=== PATIENT | female | born 1990 | race Caucasian/White ===

== ENCOUNTER → 2023-03-29 08:05 | Outpatient (CLI) | payer OTHER, SELFPAY ==
--- NOTE | ~2023-03-29 | US_ITS ---
Limited Abdominal Sonogram: Real-time sonographic imaging of the right upper quadrant was performed. Clinical History: Right upper quadrant pain Findings: The liver appears heterogeneous, with no evidence of mass lesion or bile duct dilatation. Main portal vein demonstrates normal direction of flow. The gallbladder is well distended, and appear s normal with no evidence of gallstone or wall thickening. The common bile duct measures 3 mm. The v isualized pancreas, aorta, and IVC are unremarkable. Impression: Probable diffuse fatty infiltration of the liver versus other chronic liver disease. Reviewed, dictated and finalized at location [facility] Impression: Probable diffuse fatty infiltration of the liver versus other chronic liver dis ease.
== END ==
PROVIDERS: PCP Physician Assistant; Visit Provider Physician Assistant
DX: R10.11 Right upper quadrant pain (principal)
CPT/HCPCS: 76705

== ENCOUNTER 2023-05-07 17:09 | Emergency (ER) | payer OTHER, SELFPAY ==
[2023-05-07 17:32] VITALS: BP 126/84; PULSE 75; RESP 18; TEMP 36.8; O2SAT 100
--- NOTE | 2023-05-07 17:56 | ED.FEMALEGU ---
HPI - Female Genitourinary General Chief complaint: Urogenital-Female Stated complaint: blood in urine Time Seen by Provider: 05/07/23 17:25 Source: patient Mode of arrival: ambulatory Limitations: no limitations History of Present Illness HPI Narrative: This is a 32-year-old female who presents to the ED with chief complaint of hematuria onset today. Patient reports that she is on day 5 of her normal menstrual cycle but noticed some increased bleeding today. She states that when she went to the bathroom she noticed there was blood on the toilet paper when she wiped. reports that she did have a tampon in place which caused concern for the bleeding notice when wiping. She states that she then had 2 episodes hematuria that she noticed during the stream of urine. She states most recent episode of urination did not contain any blood. Denies any dysuria, frequency, urgency, flank pain, abdominal pain, nausea, vomiting, fevers, chills. denies vaginal pain, vaginal discharge or any concern for STDs. Related Data Allergies Allergy/AdvReac Type Severity Reaction Status Date / Time latex Allergy Unknown Rash Verified 05/07/23 17:37 Review of Systems Review of Systems: All systems as dictated in HPI Exam Narrative: GENERAL: Well-appearing, well-nourished, and in no acute distress. HEAD: Normocephalic, atraumatic. EYES: PERRLA and EOMI. ENT: Nares clear, no rhinorrhea or epistaxis. Mucous membranes moist. Oropharynx without tonsillar hypertrophy exudate or other lesions. NECK: Supple. No adenopathy or masses. CHEST: No respiratory distress. Clear to auscultation. No wheezes rales or rhonchi HEART: Regular rate and rhythm. No murmur heard. Normal peripheral pulses. ABDOMEN: Soft, nontender, nondistended, normal active bowel sounds. Negative flank tenderness bilaterally MSK: Normal range of motion. No edema. SKIN: Warm, dry, no rash. NEURO: Alert and oriented x3. No focal deficits. PSYCH: Normal mood and affect. Course Vital Signs Vital signs: Vital Signs Temperature 98.3 F 05/07/23 17:32 Pulse Rate 75 05/07/23 17:32 Respiratory Rate 18 05/07/23 17:32 Blood Pressure 126/84 05/07/23 17:32 Pulse Oximetry 100 05/07/23 17:32 Temperature 98.3 F 05/07/23 17:32 Pulse Rate 75 05/07/23 17:32 Respiratory Rate 18 05/07/23 17:32 Blood Pressure 126/84 05/07/23 17:32 Pulse Oximetry 100 05/07/23 17:32 MDM - Female Genitourinary MDM Narrative Medical decision making narrative: This is a 32-year-old female who presents to the ED for chief complaint of isolated hematuria. Vitals are normal. Exam is benign. No flank pain or tenderness. Currently asymptomatic. She states that hematuria resolved while giving a urine sample here. UA remarkable only for trace blood. She is on the tail end of her menstrual cycle. We discussed that this is probably an isolated event and the blood in the urine is most likely related to menstrual cycle. due to lack of infection or any more concerning findings on the UA, shared decision making to avoid any further workup at this point. she feels comfortable with following up with PCP on this. Pt will be discharged in stable condition. Return precautions given and supportive measures discussed. Pt is understanding and agreeable with plan for discharge and follow-up with PCP. Lab Data Labs: Lab Results 05/07/23 Range/Units 17:43 Urine Color Yellow (Yellow) Urine Appearance Clear (Clear) Urine pH 6.0 (5.0-9.0) Ur Specific Superior <= 1.005 (1.001-1.035) Urine Protein Negative (Negative) mg/dL Urine Glucose (UA) Negative (Negative) mg/dL Urine Ketones Trace H (Negative) mg/dL Ur Blood (Man) Trace-intact H (Negative) Urine Nitrate Negative (Negative) Urine Bilirubin Negative (Negative) Urine Urobilinogen 0.2 (<2.0) mg/dL Leukocyte Esterase Rfl Negative (Negative) MALISSA/UL Urine RBC 0-2 (0-2
[2023-05-07 18:06] LABS: Bacteria Urine None Seen /hpf; Non Pathogenic Casts 0-2; RBC Urine 0-2 /hpf (0-2); Squamous Epithelial Cell Urine None Seen /hpf (Few); WBC Urine 0-5 /hpf (0-3)
[2023-05-07 18:21] LABS: Appearance Urine Clear (Clear); Color Urine Yellow (Yellow); Specific Grav Ur <= 1.005 (1.001-1.035)
[2023-05-07 18:22] LABS: Bilirubin Urine Negative (Negative); Blood Urine Trace-intact (Negative); Glucose Urine UA Negative (Negative); Ketones Urine Trace mg/dL (Negative); Nitrate Urine Negative (Negative); Protein Urine Negative (Negative)
[2023-05-07 18:23] LABS: Leukocyte Esterase Ur Negative LEU/UL (Negative); Urobilinogen Urine 0.2 mg/dL (<2.0)
[2023-05-07 18:24] LABS: Add Urine Microscopic? YES
== END 2023-05-07 18:43 | disposition home or self-care (01) ==
PROVIDERS: Emergency Provider Physician Assistant; PCP Physician Assistant
DX: R31.9 Hematuria, unspecified (principal)
CPT/HCPCS: 81001; 81025; 99283

== ENCOUNTER 2023-08-22 09:38 | Outpatient (CLI) | payer OTHER, SELFPAY ==
--- NOTE | ~2023-08-22 | US_ITS ---
EXAMINATION: US transvaginal DATE: 08/22/2023 10:06 INDICATION: Pelvic pain. TECHNIQUE: Multiple transvaginal sonographic images of the pelvis were obtained. COMPARISON: None. FINDINGS: The uterus measures 9.5 x 4.4 x 5.3 cm. There is no free fluid in the pelvis. The endometrial complex measures 15 mm in thickness. The right ovary measures 3.8 x 2.1 x 2.8 cm. The left ovary measures 4. 1 x 2.4 x 3.4 cm. There is normal vascular flow in the ovaries. IMPRESSION: 1. Normal pelvis. Reviewed, dictated and finalized at location E. IMPRESSION: 1. Normal pelvis.
== END 2023-08-22 09:39 ==
PROVIDERS: PCP Physician Assistant; Visit Provider Physician Assistant
DX: R10.2 Pelvic and perineal pain (principal)
CPT/HCPCS: 76830

== ENCOUNTER 2023-10-03 00:49 | Day surgery (SDC) | payer OTHER, SELFPAY ==
[2023-09-16 10:42] VITALS: BMI 27.1
[2023-10-03 11:38] VITALS: BP 117/74; PULSE 90; RESP 16; TEMP 36.5; O2SAT 100; BMI 27.1
[2023-10-03 11:55] LABS: BEDSIDEPREGUCG Negative
[2023-10-03] MEDS: LACTATED RINGERS 1,000 ML 150 ML IV CONT (12:00)
--- NOTE | 2023-10-03 12:08 | P.PNAN_ITS ---
Anes - Initial Pre Proc Eval Procedure: Operation Date: 10/03/23 15:00 Proposed Procedures p Esophagogastroduodenoscopy - Lane Wells MD Date/Time: 10/03/23 12:08 Surgeon: Lane Wells MD Pre Op Diagnosis: epigastric pain Patient Data Age: 33 Gender: F Height: 1.5 m Weight: 60.9 kg Last Vital Signs Temp 97.7 F 10/03/23 11:38 Pulse 90 10/03/23 11:38 Resp 16 10/03/23 11:38 BP 117/74 10/03/23 11:38 Pulse Ox 100 10/03/23 11:38 O2 Del Method Room Air 10/03/23 11:38 Allergies Allergy/AdvReac Type Severity Reaction Status Date / Time latex Allergy Unknown Rash Verified 10/03/23 11:46 Home Medications Medication Instructions Recorded Confirmed Type albuterol sulfate 90 mcg/actuation 1 inh inhalation Q4-6H PRN SOB 08/26/23 10/03/23 History breath activated powder inhaler famotidine 20 mg tablet (Pepcid) 20 mg PO BID 1 month #60 tabs 08/26/23 10/03/23 Rx Laboratory Tests 10/03/23 11:53 POC Urine HCG, Qual Negative POC Ur Preg QC Yes Patient hx anesthesia problems: none Family hx anesthesia problems: none Results Review: All pre-operative results and documents have been reviewed as part of the pre- operative evaluation. [facility] Past Medical History Medical History Epigastric pain Fatty liver Family History Family History Mother Depression Hypertension Father Cancer Hypertension Social History Social History Years smoked: 15 Smoking status: Former smoker Tobacco type: cigarettes and e-cigarettes/vaping Additional smoking assessment comments: Currently e-cig Alcohol intake: current Substance use: never Living arrangements: with family Spiritual care concerns: No Anes - Eval Final PreProcedure Day of Procedure 10/03/23 12:08 Patient weight: overweight Heart: regular rate and rhythm Lungs: clear to auscultation Airway: Mallampati scale class II Neurological: alert and oriented Last oral intake: >/= 8 hours ASA classification: II Emergent: no Anesthetic plan: proceed Anesthesia type and monitoring: general GIVS and standard monitoring Results Review: All pre-operative results and documents have been reviewed as part of the pre- operative evaluation. Pt currently vapes, ex smoker, quit 2018, 15 pack years. Anxiety. Informed Consent: The patient's anesthetic plan and its attendant risks and benefits were discussed with the patient/family/POA. Questions were solicited and answers provided to the satisfaction of the patient/family/POA.
--- NOTE | 2023-10-03 12:26 | PM.HPGS ---
History of Present Illness History of Present Illness Consent: Risks, benefits, and alternatives have been discussed and questions answered. Patient agrees to proceed with procedure. Chief complaint: epigastric pain Narrative: Mckenzie Aleman is a 33 year old female with intermittent abdominal pain mostly if she has empty stomach and sometimes after eating- this has been going on since March, ultrasound only fatty liver, never had egd Review of Systems Review of Systems: All systems reviewed & are unremarkable except as noted in HPI and below PMFSH Past Medical History Medical History Epigastric pain Fatty liver Family History Family History Mother Depression Hypertension Father Cancer Hypertension Social History Social History Years smoked: 15 Smoking status: Former smoker Tobacco type: cigarettes and e-cigarettes/vaping Additional smoking assessment comments: Currently e-cig Alcohol intake: current Substance use: never Living arrangements: with family Spiritual care concerns: No Meds Home Medications and Allergies Home Medications Medication Instructions Recorded Confirmed Type albuterol sulfate 90 mcg/actuation 1 inh inhalation Q4-6H PRN SOB 08/26/23 10/03/23 History breath activated powder inhaler famotidine 20 mg tablet (Pepcid) 20 mg PO BID 1 month #60 tabs 08/26/23 10/03/23 Rx Allergies Allergy/AdvReac Type Severity Reaction Status Date / Time latex Allergy Unknown Rash Verified 10/03/23 11:46 Vital Signs Vital Signs - 24 hr 10/03/23 11:38 Temperature 97.7 F Pulse Rate 90 Respiratory Rate 16 Blood Pressure 117/74 Pulse Oximetry 100 Oxygen Delivery Room Air Exam Const: General: comfortable and no acute distress HENMT: Face/Nose/Sinus: Normal nares present Eyes: General: appearance normal, both eyes and all related structures Neck: Neck: no JVD Resp: Auscultation: clear to auscultation bilaterally Cardio: Rate: regular rate Rhythm: regular rhythm GI: Inspection: non-distended GI Palp: Yes Soft to palpation Skin: General skin exam: normal color Neuro: General: gait normal Speech: normal speech Extrem: General: normal to inspection Psych: Mental Status: mental status grossly normal Assessment and Plan Assessment and plan (1) Epigastric pain: Code(s): R10.13 - Epigastric pain Status: Acute Assessment and Plan: egd with bx
[2023-10-03 12:36] VITALS: BP 129/84; PULSE 90; RESP 20; O2SAT 100
[2023-10-03 12:46] VITALS: BP 99/66; PULSE 60; RESP 18; O2SAT 100
== END 2023-10-03 13:04 | disposition home or self-care (01) ==
PROVIDERS: Anesthesiology; PCP Physician Assistant; Referring Provider Nurse Practitioner Family; Visit Provider Internal Medicine Gastroenterology
PROC: 0DJ08ZZ Inspection of Upper Intestinal Tract, Via Natural or Artificial Opening Endoscopic (ICD-10-PCS; CPT 43235; principal; 2023-10-03 15:00)
DX: R10.13 Epigastric pain (principal); Z79.51 Long term (current) use of inhaled steroids; Z87.891 Personal history of nicotine dependence; Z80.9 Family history of malignant neoplasm, unspecified
CPT/HCPCS: 43239; 88305; J2704; J7120

== ENCOUNTER 2023-12-06 10:03 | Outpatient (CLI) | payer OTHER, SELFPAY ==
[2023-12-06 10:21] LABS: Hematocrit 37.6 % (37.0-47.0); Hemoglobin 12.3 g/dL (12.0-15.0); Mean Corpuscular HGB Conc 32.7 g/dl (32-36); Mean Corpuscular Hemoglobin 27.8 pg (26-34); Mean Corpuscular Volume 85.1 fl (80-100); Mean Platelet Volume 9.5 fl (7.4-10.4); Platelet Count Result 287 k/mm3 (150-375); Red Blood Count 4.42 M/mm3 (4.2-5.4); Red Cell Distribution Width 12.2 % (11.5-14.5); White Blood Count 7.4 K/mm3 (4.5-10.0)
[2023-12-06 10:33] LABS: Alanine Aminotransferase 14 U/L (6-35); Albumin Level 4.2 g/dL (3.5-5.1); Alkaline Phosphatase 46 U/L (38-126); Anion Gap 8 mmol/L (4-12); Aspartate Amino Transferase 23 U/L (14-36); Bilirubin,Total 0.6 mg/dL (0.2-1.3); Blood Urea Nitrogen 10 mg/dL (7-17); Calcium 8.8 mg/dL (8.4-10.2); Carbon Dioxide 26 mmol/L (22-30); Chloride 101 mmol/L (98-107); Estimated Glomerular Filt Rate > 60; Glucose 78 mg/dL (65-110); Potassium 4.2 mmol/L (3.4-5.0); Sodium 135 mmol/L (137-145)
== END 2023-12-06 10:04 | disposition home or self-care (01) ==
LOC: ANHLAB 10:05
PROVIDERS: PCP Physician Assistant; Visit Provider Nurse Practitioner Family
DX: R10.13 Epigastric pain (principal); K76.0 Fatty (change of) liver, not elsewhere classified
CPT/HCPCS: 36415; 80053; 81596; 85027

== ENCOUNTER 2024-12-08 17:03 | Outpatient (CLI) | payer OTHER, SELFPAY ==
--- OUTSIDE RECORDS SUMMARY | 2011-07-02 10:00 | XMS_ITS | Continuity of Care Document ---
Author Organization [facility] Plot Projects [facility] Address [address] [place] [address] Phone Care Team Providers Care Loans Officer Name Role Phone Viki Garza DO Unavailable Unavailable Procedures Procedure Date OFFICE/OUTPATIENT VISIT, [facility] Advance Directives Directive Yes / No Effective Date File Name No Information Encounters Encounter Description Practice Location Reason(s) For Visit Diagnoses Date Provider Providers Copied on Encounter OFFICE/OUTPAT IENT VISIT, [facility], [address], [place], [id number], tel:[phone] [facility] No Information Greg Drew. [address], [place], [id number] , . tel:[phone] Referring Provider: Viki Garza [address] [address], [place], [address] . tel:[phone] Family History Family Member Type Diagnosis Age At Onset No Information Payers Payer name Insurance type Covered constitution party ID Authoriza tion(s) No Information Social History Type Description Quantity Date Captured Comments Sex Female Smoking Status No Information Chief Complaint And Reason For Visit No Information Reason For Referral Reason For Referral No Information History Of Present Illness Encounter Date Complaint History Of Prese nt Illness No Information Functional Status Date Functional Assessmen t No Information Instructions Date Instruction Additional Infor mation No Information Assessments Type Assessment Date No Information Patient Care Teams Name Effective Dates (start - stop) Status Members No Information
[2024-12-08 17:33] LABS: Alanine Aminotransferase 14 U/L (6-35); Albumin Level 4.2 g/dL (3.5-5.1); Alkaline Phosphatase 48 U/L (38-126); Anion Gap 8 mmol/L (4-12); Aspartate Amino Transferase 23 U/L (14-36); Bilirubin,Total 0.2 mg/dL (0.2-1.3); Blood Urea Nitrogen 17 mg/dL (7-17); Calcium 8.9 mg/dL (8.4-10.2); Carbon Dioxide 26 mmol/L (22-30); Chloride 102 mmol/L (98-107); Estimated Glomerular Filt Rate > 60; Glucose 89 mg/dL (65-110); Hematocrit 36.3 % (37.0-47.0); Hemoglobin 12.1 g/dL (12.0-15.0); Mean Corpuscular HGB Conc 33.3 g/dl (32-36); Mean Corpuscular Hemoglobin 27.4 pg (26-34); Mean Corpuscular Volume 82.3 fl (80-100); Platelet Count Result 304 k/mm3 (150-375); Potassium 4.3 mmol/L (3.4-5.0); Red Blood Count 4.41 M/mm3 (4.2-5.4); Sodium 136 mmol/L (137-145); Total Protein 7.0 g/dL (6.3-8.2); White Blood Count 8.3 K/mm3 (4.5-10.0)
--- OUTSIDE RECORDS SUMMARY | 2024-12-08 18:03 | XMS_ITS | Data Portability ---
Author Organization [facility] [place] Address [address] [place] [address] Care Team Providers Care Client Care Manager Name Role Phone MAGNOLIA ALVARADO Primary Care Provider [phone] Assessment Encounter Date Assessment Date Assessment LastModified by Organization Details LastModified Time 09/27/2020 09/27/2020 Annual gynecological exam performed. Patient will come back in a year unless there are new symptoms. Not available 09/27/2020 10:19:23 09/12/2023 09/12/2023 Annual gynecological exam performed. Patient will come back in a year unless there are new symptoms. [email or web address] Not available 09/11/2023 12:25:17 Plan of Treatment Reminders Order Date Submit Date Provider Last Modified By Organization Details Last Modified Time Details Appointments None recorded. Lab None recorded. Referral urogynecolo gist referral [phone] YURI Segal MD, [address] [facility] [address], [place], [address], 5 05:01:13 Procedures None recorded. Surgeries None recorded. Imaging None recorded. Medication Orders None recorded. Patient TargetsNo targets recorded. Patient InstructionsNo instructions recorded. Reason for Referral Urogynecologist Referral for Urinary bladder pain Referring Physician: Katlyn Rodriguez, [employer], Encounter Date: 09/12/2023 Results Created Date Observation Date Name Description Value Unit Range Abnormal Flag Note LastModifiedBy Organization Detail LastModifiedTime 09/28/19 21 09/27/2020 IMAGE GUIDE D PAP AND HPV REGAR DLESS image guided Pap, HPV regardless of Pap result SEE RESULT S BELOW CASE REPOR T: Cytol ogy Gynec ologi luly Repor t Case: [id number] Autho elzbieta pardo Provi nikki: Black muro , Cindi Hughes cted: 09/27 1207 TERADATA ARCHITECT Order ing Locat ion: [place] Patho log[facility] Recei gina: 09/28 0658 First Scree n: Laya Espinoza ret, CT Speci men: Jacob luzg Pap - Image d, Cervi x STATE MENT OF ADEQU ACY: Satis facto ry for evalu ation Trans forma tion zone compo nent prese nt FINAL DIAGN OSIS: Negat saurabh for Intra epith elial Lesio n or Rufino smith (NIL) Elect alonso danetteluis woody d by Laya Espinoza ret, CT on 2020 at 1:29 PM ----- ----- ----- ----- ----- ----- ----- ----- ----- ----- ----- ----- ----- ----- ----- ----- ----- ---- HPV RESUL TS: HPV mRNA E6/E7 : No HPV mRNA Detec binta NOTE: This high risk HPV mRNA assay detec ts fourt een high- risk HPV types (16, 18, 31, 33, 35, 39, 45, 51, 52, 56, 58, 59, 66, 68) witho ut diffe renti ation . COMME NT: Note: This speci men was revie wed by a Cytot echno logis t and/o r Patho logis t (as indic ated in this repor t) after evalu ation using the Thinp rep Imagi ng Syste m. CLINI LULY INFOR MATIO N: Menst rual Statu s: LMP (if appli cable ): 021 Clini luly Histo ry/Pr eviou s Pap: Type of Neopl torie (if appli cable ): Signi fican t Clini luly Findi ngs: Other Histo ry: Hormo melinda (if appli cable ): PAP EDUCA ANI L NOTE: The Pap Test is a scree zaria test with an inher ent false negat saurabh rate. Liqui d-bas e sampl ing may decre ase, but will not elimi srinivasan, false negat saurabh resul ts. A negat saurabh resul t does not precl ude the prese nce and/o r devel opmen t of disea se, since the prese nce of abnor mal cells in the sampl e depen ds on the locat ion of the lesio n and sampl ing techn ique. Jose Angel nued regul ar scree zaria is the best metho d of cance r preve ntion . If repor binta cytol ogic findi ng do not corre late with physi luly and/o r histo rical findi ngs, furth er inves tigat ion is recom garry d, as clini stephan warranu nted. Not Available [facility] (Lab) [address], [place], [address], 09/29/2020 14:32:32 09/28/19 21 09/27/2020 TRICH OMONA S VAGIN CHRISTOPHER (RRNA ) trichomonas vaginalis ribosomal RNA (rrna) Negati ve negati ve Not Available [facility] (Lab) [address], [place], [address], 09/29/2020 14:32:33 09/28/19 21 09/27/2020 CT/GC (ARELY) , THINP REP VIAL chlamydia trachomatis, PCR Negati ve negati ve Not Available [facility] (Lab) [address], [place], [address], 09/29/2020 14:32:34 09/28/19 21 09/27/2020 CT/GC (ARELY) , THINP REP VIAL neisseria gonorrhoeae, PCR Negati ve negati ve Not Available [facility] (Lab) [address], [place], [address], 09/29/2020 14:32:34 09/12/19 24 09/12/2023 IMAGE GUIDE D PAP AND HPV REGAR DLESS image guided Pap, HPV regardless of Pap result SEE RESULT S BELOW CASE REPOR T: Cytol ogy Gynec ologi luly Repor t Case: [id number] Autho elzbieta pardo Provi nikki: Katlyn Rodriguez, SURYA Puente cted: 09/11 1351 Order ing Locat ion: [place] Patho logy Recei gina: 09/12 0316 First Scree n: Heather Robbins Speci men: Jacob enciso Pap - Image d, Cervi x STATE MENT OF ADEQU ACY: Satis facto ry for evalu ation Trans forma tion zone compo nent prese nt ----- ----- ----- ----- ----- ----- ----- ----- ----- ----- ----- ----- ----- ----- ----- ----- ----- ---- FINAL DIAGN OSIS: Negat saurabh for Intra epith elial Deandra lopez or Rufino smith (NIL) . Elect alonso garcía by Heather Robbins on 024 at 7:22 PM ----- ----- ----- ----- ----- ----- ----- ----- ----- ----- ----- ----- ----- ----- ----- ----- ----- ---- HPV RESUL TS: HPV mRNA E6/E7 : No HPV mRNA Detec binta NOTE: This high risk HPV mRNA assay detec ts fourt een high- risk HPV types (16, 18, 31, 33, 35, 39, 45, 51, 52, 56, 58, 59, 66, 68) witho ut diffe renti ation . COMME NT: This speci men was revie wed by a Cytot echno logis t and/o r Patho logis t (as indic ated in this repor t) after evalu ation using the Thinp rep Imagi ng Syste m. CLINI LULY INFOR MATIO N: Menst rual Statu s: LMP (if appli cable ): 2023 Clini luly Histo ry/Pr eviou s Pap: Type of Neopl torie (if appli cable ): Signi fican t Clini luly Findi ngs: Other Histo ry: Hormo melinda (if appli cable ): PAP EDUCA ANI L NOTE: The Pap Test is a scree zaria test with an inher ent false negat saurabh rate. Liqui d-bas ed sampl ing may decre ase, but will not elimi srinivasan, false negat saurabh resul ts. A negat saurabh resul t does not precl ude the prese nce and/o r devel opmen t of disea se, since the prese nce of abnor mal cells in the sampl e depen ds on the locat ion of the lesio n and sampl ing techn ique. Jose Angel nued regul ar scree zaria is the best metho d of cance r preve ntion . If repor binta cytol ogic findi ng do not corre late with physi luly and/o r histo rical findi ngs, furth er inves tigat ion is recom garry d, as clini stephan warra nted. Not Available [facility] (Lab) [address], [place], [address], 09/18/2023 20:27:01 10/04/19 21 10/03/2020 US, trans vagin al No observ ation record ed. [facility] [address], [place], [address], 10/04/2020 18:10:44 Result Notes None recorded. Procedures Surgical History Date Name Laterality Status Provider Name and Address Organization Details Recorded Time 09/27/2020 Date of Last Pap Smear completed Viri Knight [facility] 09/12/2023 11:19:00 Imaging Results None recorded. Procedure Notes None recorded. Medical Equipment None Reported. Allergies Allergen ID Allergen Name Allergen Category Reaction Reaction Severity Criticality Documentation Date Start Date Code Code System Note Provider Name and Address Organization Details Recorded Time 37152 latex environme nt,medica tion rash moderate Not available 09/12/2023 63803 91 RxNorm Viri Knight amelia [facility] 4 11:18:05 Medications Name Sig Start Date Stop Date Status Note LastModified by Organization Details LastModified Time Claritin 10 mg tablet Take 1 tablet every day by oral route. 09/11 completed Not Available Not Available Not Available clonazepam 0.5 mg tablet TAKE 1 TABLET BY MOUTH TWICE DAILY NEEDED active Not Available Not Available No t Available sulfamethox azole 800 mg-trimetho prim 160 mg tablet TAKE 1 TABLET BY MOUTH EVERY 12 HOURS FOR 3 DAYS 09/27 completed Not Available Not Available Not Available famotidine 20 mg tablet TAKE 1 TABLET BY MOUTH TWICE A DAY FOR A MONTH active Not Available Not Available No t Available omeprazole 20 mg capsule,del ayed release TAKE 1 CAPSULE BY MOUTH ONCE DAILY FOR 30 DAYS 09/10 completed Not Available Not Available Not Available albuterol sulfate HFA 90 mcg/actuati on aerosol inhaler INHALE 2 PUFFS BY MOUTH EVERY 4 HOURS NEEDED 09/27 completed Not Available Not Available Not Available Acid Radiology Ct Technologist (famotidine ) 10 mg tablet active Not Available Not Available Not Available ondansetron 4 mg disintegrat ing tablet DISSOLVE 2 TABLETS IN MOUTH TWICE DAILY NEEDED FOR 5 DAYS 09/10 completed Not Available Not Available Not Available nitrofurant oin monohydrate /macrocryst als 100 mg capsule TAKE 1 CAPSULE BY MOUTH TWICE DAILY FOR INFECTION FOR 7 DAYS 09/27 completed Not Available Not Available Not Available B12 09/27 completed Not Available Not Available Not Available Auvi-Q 0.3 mg/0.3 mL injection, auto-inject or INJECT 1 PEN INJECTOR IN THE MUSCLE NEEDED FOR ANAPHYLAX IS 09/27 completed Not Available Not Available Not Available Allergy Relief (levocetiri zine) 5 mg tablet active Not Available Not Available Not Available ID NOW COVID-19 Test Kit TEST DIRECTED 09/27 completed Not Available Not Available Not Available Vitals Date Recorded Body height Body mass index (BMI) Body weight Systolic And Diastolic Provider Name and Address Organization Details Last Updated DateTime 09/12/2023 148.59 cm 27.7 kg/m2 69091.97 g 104/71 mm[Hg] Viri Knight [facility] 09/12/2023 11:16:05 Date Recorded Body height Body mass index (BMI) Body weight Systolic And Diastolic Provider Name and Address Organization Details Last Updated DateTime 09/27/2020 148.59 cm 26.3 kg/m2 77551.82 g 97/62 mm[Hg] Kim Alvaro [facility] 09/27/2020 10:20:53 Social History Question Answer Notes LastModified by Organizat ion Details LastModified Time Tobacco Smoking Status Current Every Day Smoker MAXIMILIANO Strong [address], [place], [address], [facility] 09/12/2023 13:40:36 Do You Have An Advance Directive? No Information not available 09/27/2020 How Many Years Have You Consumed Alcohol? 15 [email or web address] Information not available 09/12/2023 Are You Blind Or Do You Have Difficulty Seeing? No Information not available 09/27/2020 What Is Your Level Of Caffeine Consumption? Moderate Information not available 09/27/2020 How Much Tobacco Do You Chew? None Information not available 09/27/2020 In The 14 Days Before Symptom Onset, Have You Had Close Contact With A Laboratory-confir med COVID-19 While That Case Was Ill? No Information not available 09/27/2020 In The 14 Days Before Symptom Onset, Have You Had Close Contact With A Person Who Is Under Investigation For COVID-19 While That Person Was Ill? No Information not available 09/27/2020 Have You Been To An Area Known To Be High Risk For COVID-19? No Information not available 09/27/2020 Are You Deaf Or Do You Have Serious Difficulty Hearing? No Information not available 09/27/2020 What Type Of Diet Are You Following? VEGETARIAN Information not available 09/12/2023 What Is The Highest Grade Or Level Of School You Have Completed Or The Highest Degree You Have Received? [id number] Information not available 09/27/2020 Are There Any Guns Present In Your Home? Yes Information not available 09/27/2020 Do You Use Protection During Sex? Always Information not available 09/27/2020 Do You Use Your Seat Belt Or Car Seat Routinely? Yes Information not available 09/27/2020 Do You Have Smoke And Carbon Monoxide Detectors In Your Home? Yes Information not available 09/27/2020 At What Age Did You Start Smoking Tobacco? 13 Information not available 09/27/2020 How Much Tobacco Do You Smoke? No Information not available 09/27/2020 Do You Use Sunscreen Routinely? Yes Information not available 09/27/2020 How Many Years Have You Smoked Tobacco? 15 Information not available 09/27/2020 Have You Used IV Drugs? No Information not available 09/27/2020 Do You Have Difficulty Walking Or Climbing Stairs? No [email or web address] Information not available 09/11/2023 Sex: Unknown Functional Status Question Answer Note LastModified by Organizat ion Details LastModified Time Do you use any illicit or recreational drugs? No Information not available 09/27/2020 What is your level of alcohol consumption? Occasional [email or web address] Information not available 09/12/2023 Are you able to walk independently without assistance or assistive devices? [email or web address] Information not available 09/27/2020 Are you able to care for yourself independently? 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 No [email or web address] Information not available 09/11/2023 What is your exercise level? Occasional Information not available 09/27/2020 Mental Status Question Answer Note LastModified by Organization D etails LastModified Time Do you feel stressed (tense, restless, nervous, or anxious, or unable to sleep at night)? [id number] Information not available 09/27/2020 Family History Relationship Description Onset Age of this Age Resolved Age Notes LastModified by Organization Details LastModified Time Father Hypertensive disorder Not available 2020 10:22:19 Mother Hypertensive disorder Not available 2020 10:22:19 Medical History Condition Response Allergies (Food, seasonal, environmental ) Y History of abnormal pap Y Urinary Tract Infection Y Drug/Latex Allergies/Reactions Y Gynecological History Statement/Question Response Date of LMP 08/26/2023 Was last menstrual period normal Y HPV Vaccine Y Duration of Flow (days) 4 Current Control Method Condoms Frequency of Cycle (Q days) 29 Sexually Active? Y Age of first menstrual cycle 10 Date of Last Pap Smear 09/27/2020 Sexual Problems? N Desired Control Method Hysterectom y LMP Definite N Obstetrics History GPAL:G 0 P 0 0 0 0 Past Encounters Encounter ID Performer Location Encounter Start Date Encounter Closed Date Diagnosis/Indication Diagnosis SNOMED-CT Code Diagnosis ICD10 Code Diagnosis IMO Codes Diagnosis Note [id number] Erica Deleon SURYAUC [facility] [address] [address] 09/27/2020 09:48:30 09/27/2020 10:54:25 Gynecologic examination 33514210 Z01.419 Take Calcium with Vitamin D 1200mg daily if not receiving in daily diet. It is strongly advised to have an annual flu shot and up can obtain at most pharmacies . If you have not had a TDap shot in the last 10 years you should obtain one as well. Discussed with patient & provided with informatio n regarding Gardisil vaccine to prevent the 4 strains for HPV that cause cervical cancer if under age 26. Encourage safe sexual practices, to use condoms and limit partners if not already in a monogamous relationsh ip. Do monthly self breast exams. Have mammogram yearly or every other year depending on family history. BRCA testing is now available for patients with strong genetic history of female cancer. If interested contact the office. Engage in daily exercise of low impact aerobic exercise 45-60 minutes 4-5 times weekly. Avoid tobacco and illicit drugs as well as using moderation with alcohol intake less than 1-2 8 oz beverages daily. This lifestyle behavior pattern will lead to less health conditions and longer life span. If BMI greater than 25 weight watchers or dietary consult advised. Patient received above instructio ns, and questions have been answered. If you have any questions please call or respond to this email. Patient was made aware of the patient portal and may obtain a paper copy of today's plan if desired. Pap/hpv updatedSTD updatedBC: CondomsHav ing TVUS for recent bout of lower abd pain/pelvi c pain 2wks ago.Will have results sent to us. Patient is to contact office or go to nearest ED/Urgent care if fever >/= 100.1, pain, excessive bleeding, unusual drainage or swelling in area of concern; or experienci ng worsening sx's or new onset of concerning sx's. Understand ing verbalized . All questions answered to patient satisfacti on. MAXIMILIANO Castaneda [facility] [address] [address] 09/12/2023 11:04:45 09/12/2023 13:58:31 Gynecologic examination [id number] Z01.419 WWEBC - condomspap updateddec lined STI screenrout ine labs UTD / PCP It is strongly advised to have an annual flu shot and up can obtain at most pharmacies . If you have not had a TDap shot in the last 10 years you should obtain one as well. Discussed with patient & provided with informatio n regarding the HPV vaccine if applicable . Encourage safe sexual practices, to use condoms and limit partners if not already in a monogamous relationsh ip. Do monthly self breast exams. BRCA testing is now available for patients with strong genetic history of female cancer. If interested contact the office. Engage in regular exercise. Avoid tobacco and illicit drugs. . This lifestyle behavior pattern will lead to less health conditions and longer life span. If BMI greater than 25 dietary consult advised. Patient received above instructio ns, and questions have been answered. Urinary bladder pain 158 00554 R39.82 Discussed symptomspe lvic floor physical therapy referral offeredwe agreed to urogyne consult Health Concerns Section Related Observation LastModified by Organization Detai ls LastModified Time None Recorded Concern Status LastModified by Organization Details LastModified Time None Recorded Advance Directives Directive N: Payers Insurance Date Sequence Insurance Name Policy Number Policy Hunter Covered Member ID Hunter Member ID Guarantor Name 09/12/2023 1 [employer] (POS II) [id number] Mckenzie Aleman [id number] Mckenzie Aleman 09/12/2023 1 [facility] [id number] Mckenzie Aleman [id number] Mckenzie Aleman Notes Date Note Type Note Provider Name and Address Organization Details Recorded Time 1 text/html Annual GYNReported by PatientGenitourinary symptomsFor menstrual cycle, patient reportsnormal menses. For urinary symptoms, patient reportsno hematuriaandno incontinence. For vulva, patient reportsno genital lesion. For vagina, patient reportsnormal vaginal discharge.Breast symptomsFor breast, patient reportsno breast pain,no breast lump, andno nipple discharge.ContraceptionFo r current contraception, patient reportssatisfied with current contraceptionandcondoms.E ndocrine symptomsFor sexual complaints, patient reportsno sexual complaints,no pain during intercourse, andnormal libido. For menopausal symptoms, patient reportsno menopausal symptomsandnormal vaginal lubrication.Psychological symptomsFor psychological symptoms, patient reportsno depression,no anxiety, andno pmdd.Preventative measuresFor preventive measures, patient reportsencourage self breast examination,encourage regular exercise,encourage no tobacco use,encourage regular mammograms starting age 40, andhistory of abnormal pap smear/cervical dysplasia. Tx'd for UTI at urgent care but pelvic/abd discomfort persisted.Now left with a general feeling of cramping & discomfort.Friday10/03/2020 has Pelvic US scheduled (ordered by her PCP)LMP 09/2020Not on BC--uses condoms Erica Deleon, SURYA- [address], [place], [address], [facility] 09/27/2020 10:41:48 4 text/html Annual GYNReported by PatientGenitourinary symptomsFor menstrual cycle, patient reportsnormal menses. For urinary symptoms, patient reportsno hematuriaandno incontinence. For vulva, patient reportsno genital lesion. For vagina, patient reportsnormal vaginal discharge.Breast symptomsFor breast, patient reportsno breast pain,no breast lump, andno nipple discharge.ContraceptionFo r current contraception, patient reportssatisfied with current contraceptionandcondoms.E ndocrine symptomsFor sexual complaints, patient reportsno sexual complaints,no pain during intercourse, andnormal libido. For menopausal symptoms, patient reportsno menopausal symptomsandnormal vaginal lubrication.Psychological symptomsFor psychological symptoms, patient reportsno depression,no anxiety, andno pmdd.Preventative measuresFor preventive measures, patient reportsencourage self breast examination,encourage regular exercise,encourage no tobacco use, andencourage regular mammograms starting age 40.33yo WWEBC - condomslast pap 2020 - nilm, HPV (-) pelvic pain in the morning when she has a full bladder and then shortly after urinatinghas been occurring on and off for yearspelvic u/s done 1 month ago through PCP normal per pthas had many urine cx's all neg MAXIMILIANO Castaneda [address], [place], [address], [place] [facility] 09/12/2023 13:43:42 OBGyn Episode No OBEpisode recorded.
== END 2024-12-08 17:04 | disposition home or self-care (01) ==
LOC: ANHLAB 17:04
PROVIDERS: PCP Physician Assistant; Visit Provider Nurse Practitioner Family
DX: K76.0 Fatty (change of) liver, not elsewhere classified (principal)
CPT/HCPCS: 36415; 80053; 85027